=== PATIENT | male | born 1975 | race Caucasian/White ===

== ENCOUNTER 2017-07-11 14:55 | Emergency (ER) | payer OTHER ==
--- NOTE | 2017-07-11 15:14 | EDM.PDOC ---
ED HPI GENERAL MEDICAL PROBLEM - General Chief Complaint: General Stated Complaint: POSSIBLE KIDNEY STONE Time Seen by Provider: 07/11/17 15:00 Source of Information: Reports: Patient History Limitations: Reports: No Limitations - History of Present Illness INITIAL COMMENTS - FREE TEXT/NARRATIVE: According to patient he [place] and suddenly started to feel sever pain in his right flank. The pain is of waxing and waning type, gets very intense and rates at 10/10 and slightly improves. No radiation of pain. No testicular pain. Has vomited once from pain. When the pain gets intense he feels nauseous. He has been frequently urinating since today morning. No fever or chills. No diarrhea or abdominal bloating. Pt has never hd similar pain or has no history of kidney stones. - Related Data Allergies Allergy/AdvReac Type Severity Reaction Status Date / Time No Known Allergies Allergy Verified 07/11/17 15:16 ED ROS GENERAL - Review of Systems Review Of Systems: See Below Constitutional: Denies: Fever, Chills HEENT: Denies: Ear Pain, Eye Discharge, Nose Pain, Rhinitis, Sinus Problem, Throat Pain, Throat Swelling Respiratory: Denies: Shortness of Breath, Wheezing, Pleuritic Chest Pain, Cough , Sputum Cardiovascular: Denies: Chest Pain, Lightheadedness Endocrine: Denies: Fatigue GI/Abdominal: Reports: Nausea, Vomiting. Denies: Abdominal Pain : Reports: Flank Pain (right), Frequency, Urgency. Denies: Discharge, Dysuria , Hematuria, Urinary Retention Musculoskeletal: Denies: Joint Pain, Joint Swelling Skin: Denies: Bruising, Pruritis, Rash Neurological: Denies: Headache, Numbness, Weakness ED EXAM, GENERAL - Physical Exam Exam: See Below Exam Limited By: No Limitations General Appearance: Alert, WD/WN, Moderate Distress Eye Exam: Bilateral Eye: EOMI, PERRL Ears: Normal External Exam, Normal Canal, Hearing Grossly Normal, Normal TMs Ear Exam: Bilateral Ear: Auricle Normal, Canal Normal, TM normal Nose: Normal Inspection, Normal Mucosa, No Blood Throat/Mouth: Normal Inspection, Normal Lips, Normal Teeth, Normal Gums, Normal Oropharynx, Normal Voice, No Airway Compromise Head: Atraumatic, Normocephalic Neck: Normal Inspection, Supple, Non-Tender, Full Range of Motion Respiratory/Chest: No Respiratory Distress, Lungs Clear, Normal Breath Sounds, No Accessory Muscle Use, Chest Non-Tender Cardiovascular: Normal Peripheral Pulses, Regular Rate, Rhythm, No Edema, No Gallop, No JVD, No Murmur, No Rub GI/Abdominal: Normal Bowel Sounds, Soft, Non-Tender, No Organomegaly, No Distention, No Abnormal Bruit, No Mass (Male) Exam: No: Normal Inspection, Suprapubic Fullness Back Exam: Normal Inspection, Full Range of Motion, CVA Tenderness (R) Extremities: Normal Inspection, Normal Range of Motion, Non-Tender, Normal Capillary Refill, No Pedal Edema Neurological: Alert, Oriented Course - Vital Signs Text/Narrative:: Pt presents with right sided flank pain since 10 am today morning which is waxing and waning type with vomiting and nausea. No fever or chills. He did receive 1 mg dilaudid for pain as he was rating it at 10/10. Pt had UA and BMP done. His UA shows large blood with more than 100 RBC on micro. His BMP is normal. He did get a CT stone protocol done, which does show a 4mm stone in the right lower ureter close to right UV junction. Pt reassured that he has 4mm right ureteric stone which he should be able to pass. His pain has improved with dilaudid. I have advised patient to strain his urine for stone. Also I have sent him home on toradol 10mg 3 times daily as needed for pain. Advised to drink plenty of fluids. If pain not better in 24 hrs needs to return to emergency room. Otherwise followup withhis primary care provider. - Orders/Labs/Meds Orders: Active Orders 24 hr Category Date Time Status Kidney Stone Protocol [CT] Stat Exams 07/11/17 15:10 Taken Labs: Laboratory Tests 07/11/17 07/11/17 Range/Units 14:30 15:00 Sodium 147 H (136-145) mmol/L Potassium 4.4 (3.5-5.1) mmol/L Chloride 106 (98-107) mmol/L Carbon Dioxide 26.6 (21.0-32.0) mmol/L Anion Gap 18.8 H (5.0-15.0) mmol/L BUN 21 (8-26) mg/dL Creatinine 1.24 (0.70-1.30) mg/dL Est Cr Clr Drug Dosing TNP Estimated GFR (MDRD) > 60 (>60) MLS/MIN BUN/Creatinine Ratio 16.9 (6-25) Glucose 145 H (74-100) mg/dL Calcium 9.1 (8.5-10.1) mg/dL Urine Color Yellow Urine Appearance Clear (CLEAR) Urine pH 5.0 (5.0-8.0) Ur Specific [place] >= 1.030 (1.003-1.030) Urine Protein 100 H (NEGATIVE) mg/dL Urine Glucose (UA) Negative (NEGATIVE) mg/dL Urine Ketones Negative (NEGATIVE) mg/dL Urine Occult Blood Large H (NEGATIVE) Urine Nitrite Negative (NEGATIVE) Urine Bilirubin Negative (NEGATIVE) Urine Urobilinogen 0.2 (0.2-1.0) E.U./dL Ur Leukocyte Esterase Negative (NEGATIVE) Urine RBC 20-30 H /HPF Urine WBC Not seen /HPF Ur Squamous Epith Cells Rare /HPF Meds: Medications Discontinued Medications Generic Name Dose Route Start Last Admin Trade Name Freq PRN Reason Stop Dose Admin Hydromorphone HCl 1 mg 07/11/17 15:14 07/11/17 15:19 Dilaudid IM 07/11/17 15:15 1 mg ONETIME STA Administration Hydromorphone HCl Confirm 07/11/17 15:22 Dilaudid Administered 07/11/17 15:23 Dose 4 mg .ROUTE .STK-MED ONE Ketorolac Tromethamine Confirm 07/11/17 15:55 Toradol Administered 07/11/17 15:56 Dose 30 mg .ROUTE .STK-MED ONE Departure - Departure Time of Disposition: 16:15 Disposition: Home, Self-Care 01 Condition: Fair Clinical Impression: Right distal ureteral calculus - Discharge Information Referrals: PCP,None [Primary Care Provider] - Forms: ED Department Discharge Additional Instructions: Pt reassured that he has 4mm right ureteric stone in the distal which he should be able to pass. His pain has improved with dilaudid. I have advised patient to strain his urine for stone. Also I have sent him home on toradol 10mg 3 times daily as needed for pain. Advised to drink plenty of fluids. If pain not better in 24 hrs needs to return to emergency room. Otherwise followup with his primary care provider. - Problem List & Annotations (1) Right distal ureteral calculus SNOMED Code(s): 758191288 Code(s): N20.1 - CALCULUS OF URETER Status: Acute Current Visit: Yes - Problem List Review Problem List Initiated/Reviewed/Updated: Yes - My Orders Last 24 Hours: My Active Orders 07/11/17 15:10 Kidney Stone Protocol [CT] Stat - Assessment/Plan Last 24 Hours: My Active Orders 07/11/17 15:10 Kidney Stone Protocol [CT] Stat Assessment:: right ureteric stone Plan: Pt presents with right sided flank pain since 10 am today morning which is waxing and waning type with vomiting and nausea. No fever or chills. He did receive 1 mg dilaudid for pain as he was rating it at 10/10. Pt had UA and BMP done. His UA shows large blood with more than 100 RBC on micro. His BMP is normal. He did get a CT stone protocol done, which does show a 4mm stone in the right lower ureter close to right UV junction. Pt reassured that he has right ureteric stone which he should be able to pass. His pain has improved with dilaudid. I have advised patient to strain his urine for stone. Also I have sent him home on toradol 10mg 3 times daily as needed for pain. Advised to drink plenty of fluids. If pain not better in 24 hrs needs to return to emergency room. Otherwise folowup withhis primary care provider.
[2017-07-11] MEDS: HYDROmorphone 4 MG/ML Syringe IM STA (15:19)
[2017-07-11] MEDS ORDERED: HYDROmorphone 4 MG/ML Syringe ONE (15:22)
[2017-07-11] MEDS ORDERED: Ketorolac 10 MG Tab ONE ×2 (15:45→15:55)
--- NOTE | 2017-07-14 08:31 | CT ---
Date of Service: 07/11/2017 Clinical Data: Right flank pain. UNENHANCED ABDOMEN AND PELVIC CT Multislice acquisition through the abdomen and pelvis without IV or oral contrast was performed. No priors. The lung bases are clear. The unenhanced liver appears normal. No focal hepatic lesions. The gallbladder appears normal. The spleen appears normal. The pancreas appears normal. The right and left adrenals appear normal. There is a small nonobstructing renal calculi in the lower pole of the right kidney. There is a 3 mm distal ureteral calculi on the right located in the distal right ureter at the ureterovesical junction. There is hydronephrosis and hydroureter proximal to it consistent with obstruction. The kidneys and collecting systems are otherwise unremarkable. The bladder is partially fluid filled and appears normal. The appendix is not dilated. No evidence of appendicitis. There is an umbilical hernia containing fat. No free air. No free fluid. No dilated loops of bowel. No adenopathy. No aortic aneurysm. IMPRESSION: 3 mm distal ureteral calculi on right ureterovesical junction with obstruction. Other findings as discussed above. MTDD
== END 2017-07-11 16:20 | disposition home or self-care (01) ==
LOC: LB.ED 14:55
DX: N20.1 Calculus of ureter (principal)
CPT/HCPCS: 36415; 74176; 80048; 81001; 96372; 99284-25; A9270-GY; J1170